=== PATIENT | male | born 1940 | race Two or more races ===

== ENCOUNTER 2025-02-18 14:09 | Inpatient (IN) | payer MEDICARE, OTHER ==
[~2025-02-18] VITALS: Ht 172.7 cm; Wt 65.1 kg
[2025-02-19 09:23] VITALS: BP 150/85; TEMP 97.7
[2025-02-19 11:10] VITALS: BP 150/85; TEMP 97.7
[2025-02-19 16:57] VITALS: BP 110/76; TEMP 97.6; O2SAT 95
[2025-02-19] MEDS ORDERED: ZINC113P3 TP (17:12)
[2025-02-19] MEDS ORDERED: HYDR20VI6 IV (17:12)
[2025-02-19] MEDS ORDERED: [UNRECOGNIZED DRUG - CODE] IV (17:12)
[2025-02-19] MEDS ORDERED: NA P133E RC (17:12)
[2025-02-19] MEDS ORDERED: TAMS-3 NG (17:12)
[2025-02-19] MEDS ORDERED: LINA5TAB NG (17:12)
[2025-02-19] MEDS ORDERED: NUT.237L36 PO (17:12)
[2025-02-19] MEDS ORDERED: ONDA4VIA52 IV (17:12)
[2025-02-19] MEDS ORDERED: FINA5TAB11 NG (17:12)
[2025-02-19] MEDS ORDERED: MAGN400O6 PO (17:12)
[2025-02-19] MEDS ORDERED: INSU100V28 SQ (17:12)
[2025-02-19] MEDS ORDERED: ONDANSETRON HCL 4 MG TABLET PO PRN (20:30)
[2025-02-19] MEDS ORDERED: DEXTROSE 50% 50 ML DISP.SYRIN IV PRN (20:45)
[2025-02-19] MEDS ORDERED: BLOOD SUGAR DIAGNOSTIC 1 EACH STRIP VI SCH (21:00)
[2025-02-19] MEDS: CARBIDOPA/LEVODOPA 25-100MG TABLET PO SCH (21:14)
[2025-02-19] MEDS: TAMSULOSIN HCL 0.4 MG CAP.SR.24H PO SCH (21:14)
[2025-02-19] MEDS: ATORVASTATIN 20 MG TABLET PO SCH (21:15)
[2025-02-19] MEDS: BLOOD SUGAR DIAGNOSTIC 1 EACH STRIP VI SCH (21:17)
[2025-02-19] MEDS: INSULIN REGULAR, HUMAN 1000 UNIT/10 ML VIAL SQ PRN (21:31)
[2025-02-19 21:52] VITALS: BP 132/79; TEMP 98; O2SAT 100
[2025-02-20] MEDS: LORAZEPAM 0.5 MG TABLET PO PRN (02:24)
[2025-02-20 06:22] VITALS: BP 132/79; TEMP 98; O2SAT 100
[2025-02-20 07:03] LABS: PLATELET COUNT (AUTO) 165 K/uL (152-348); RED BLOOD CELL COUNT(AUTO) 4.26 MIL/uL (4.06-5.63); RED CELL DISTRIBUTION WIDTH 13.0 % (12.1-16.2); WHITE BLOOD COUNT (AUTO) 5.0 K/uL (3.6-10.2)
[2025-02-20 07:20] LABS: CREATININE 1.1 mg/dL (0.6-1.3); SODIUM SERUM 138 mmol/L (136-145); UREA NITROGEN, BLOOD 16 mg/dL (7-18)
[2025-02-20 07:45] VITALS: BP 130/69; TEMP 97.9; O2SAT 99
[2025-02-20] MEDS: LINAGLIPTIN 5 MG TABLET PO SCH (08:38)
[2025-02-20] MEDS: FINASTERIDE 5 MG TABLET PO SCH (08:38)
[2025-02-20] MEDS: GLUCERNA SHAKE 237 ML CAN PO SCH (08:42)
[2025-02-20] MEDS ORDERED: LINAGLIPTIN 5 MG TABLET PO SCH (09:00)
[2025-02-20] MEDS ORDERED: IV D5W-0.45% NS 1000 ML BAG IV PRN (14:00)
[2025-02-20] MEDS ORDERED: DEXTROSE 50% 50 ML DISP.SYRIN IV PRN (14:00)
[2025-02-20] MEDS ORDERED: MAGNESIUM HYDROXIDE 30 ML LIQUID UDC PO PRN (14:00)
[2025-02-20 15:00] VITALS: BP 121/63; TEMP 97.8; O2SAT 99
[2025-02-20 16:10] VITALS: O2SAT 99
[2025-02-20] MEDS ORDERED: BLOOD SUGAR DIAGNOSTIC 1 EACH STRIP VI SCH (16:30)
[2025-02-20] MEDS: INSULIN REGULAR, HUMAN 300 UNITS/3 ML VIAL SQ PRN (16:57)
[2025-02-20] MEDS ORDERED: GLUCERNA 1.2 1000ML LIQUID PO SCH (18:00)
[2025-02-20] MEDS ORDERED: TAMSULOSIN HCL 0.4 MG CAP.SR.24H PO SCH (21:00)
[2025-02-20 21:58] VITALS: BP 104/55; TEMP 98.1; O2SAT 99
[2025-02-21 05:41] VITALS: O2SAT 99
[2025-02-21 06:12] VITALS: BP 122/61; TEMP 98; O2SAT 100
[2025-02-21 08:14] VITALS: BP 140/69; TEMP 97.2; O2SAT 95
[2025-02-21] MEDS ORDERED: LINAGLIPTIN 5 MG TABLET NG SCH (09:00)
[2025-02-21] MEDS ORDERED: FINASTERIDE 5 MG TABLET NG SCH (09:00)
[2025-02-21 16:00] VITALS: BP 116/55; TEMP 83; O2SAT 98
[2025-02-21] MEDS: INSULIN REGULAR, HUMAN 1000 UNIT/10 ML VIAL SQ PRN (16:44)
[2025-02-21 21:17] VITALS: BP 131/67; TEMP 98.9; O2SAT 97
[2025-02-22] VITALS (7 sets, daily range): BP systolic 116–148; BP diastolic 60–69; TEMP 98.4–98.6; O2SAT 97–100
[2025-02-22] MEDS ORDERED: IV D5W-0.45% NS 1000 ML BAG IV PRN (07:15)
[2025-02-22 11:13] LABS: CREATININE 1.3 mg/dL (0.6-1.3); SODIUM SERUM 138 mmol/L (136-145); UREA NITROGEN, BLOOD 27 mg/dL (7-18)
[2025-02-22] MEDS: IV 1/2NS 1000 ML 1,000 ML IV ONE (18:17)
[2025-02-23 03:59] VITALS: O2SAT 99
[2025-02-23 05:17] VITALS: BP 142/68; TEMP 98.5; O2SAT 97
[2025-02-23 07:41] LABS: CREATININE 1.4 mg/dL (0.6-1.3); SODIUM SERUM 138 mmol/L (136-145); UREA NITROGEN, BLOOD 30 mg/dL (7-18)
[2025-02-23 07:42] VITALS: BP 115/62; TEMP 97.7; O2SAT 98
[2025-02-23] MEDS: IV 1/2NS 1000 ML 1,000 ML IV PRN (14:51)
[2025-02-23 15:32] VITALS: BP 108/52; TEMP 98.4; O2SAT 98
[2025-02-23 22:53] VITALS: BP 104/54; TEMP 98.5; O2SAT 93
[2025-02-24 06:20] VITALS: BP 110/57; TEMP 98.4; O2SAT 99
[2025-02-24 07:28] LABS: PLATELET COUNT (AUTO) 150 K/uL (152-348); RED BLOOD CELL COUNT(AUTO) 4.07 MIL/uL (4.06-5.63); RED CELL DISTRIBUTION WIDTH 13.2 % (12.1-16.2); WHITE BLOOD COUNT (AUTO) 5.6 K/uL (3.6-10.2)
[2025-02-24 07:49] LABS: ASPARTATE AMINOTRANSFERASE 15 U/L (15-37); CREATINE KINASE, TOTAL 19 U/L (39-308); CREATININE 1.6 mg/dL (0.6-1.3); SODIUM SERUM 140 mmol/L (136-145); TOTAL PROTEIN, SERUM 5.9 g/dL (6.4-8.2); UREA NITROGEN, BLOOD 30 mg/dL (7-18)
[2025-02-24 07:56] VITALS: BP 116/61; TEMP 98.4; O2SAT 100
[2025-02-24 11:22] LABS: *BILIRUBIN,URIN NEGATIVE (NEGATIVE); *BLOOD, URINE 2+ (NEGATIVE); *CLARITY,URINE CLEAR (CLEAR); *COLOR,URINE YELLOW (YELLOW); *KETONES,URINE NEGATIVE (NEGATIVE); *PROTEIN,URINE 1+ (NEGATIVE); *UROBILINOGEN,URINE 0.2 E.U./dl (NORMAL); LEUKOCYTE ESTERASE ,URINE NEGATIVE (NEGATIVE); NITRITE, URINE NEGATIVE (NEGATIVE); UGLUCOSE NEGATIVE (NEGATIVE)
[2025-02-24 11:35] LABS: *CREATININE,URINE 45.0 mg/dL (30-125); *SODIUM RNDM,URINE 104.0 mmol/L (40-220); *URINE TOTAL PROTEIN RANDOM 43.9 mg/dL (<150/24HR)
[2025-02-24 12:00] LABS: CALCIUM OXALATE CRYSTALS,UR FEW /HPF (NONE SEEN)
[2025-02-24 16:08] VITALS: BP 134/62; TEMP 97.3; O2SAT 98
[2025-02-24 16:25] VITALS: O2SAT 98
[2025-02-24 21:22] VITALS: BP 120/61; TEMP 98.6; O2SAT 99
[2025-02-24] MEDS: MAGNESIUM HYDROXIDE 30 ML LIQUID UDC PO PRN (23:55)
[2025-02-25 04:01] VITALS: O2SAT 99
[2025-02-25 05:35] VITALS: BP 125/71; TEMP 98.1; O2SAT 98
[2025-02-25 07:07] LABS: PTH, INTACT 14 pg/mL (15-65)
[2025-02-25 07:23] LABS: PLATELET COUNT (AUTO) 146 K/uL (152-348); RED BLOOD CELL COUNT(AUTO) 4.25 MIL/uL (4.06-5.63); RED CELL DISTRIBUTION WIDTH 13.3 % (12.1-16.2); WHITE BLOOD COUNT (AUTO) 4.6 K/uL (3.6-10.2)
[2025-02-25 07:40] LABS: ASPARTATE AMINOTRANSFERASE < 5 U/L (15-37); CREATINE KINASE, TOTAL 24 U/L (39-308); CREATININE 1.3 mg/dL (0.6-1.3); SODIUM SERUM 140 mmol/L (136-145); TOTAL PROTEIN, SERUM 6.2 g/dL (6.4-8.2); UREA NITROGEN, BLOOD 27 mg/dL (7-18)
[2025-02-25 08:00] VITALS: BP 11/55; TEMP 97.2; O2SAT 98
[2025-02-25] MEDS: FLEET ENEMA 133 ML BOTTLE RC PRN (15:02)
[2025-02-25 16:04] VITALS: O2SAT 98
[2025-02-25 20:00] VITALS: BP 118/65; TEMP 97.5; O2SAT 97
[2025-02-25] MEDS: ZOLPIDEM 5 MG TABLET PO ONE (23:15)
[2025-02-26] VITALS (7 sets, daily range): BP systolic 110–140; BP diastolic 51–70; TEMP 97.5–98.5; O2SAT 97–99
[2025-02-27] MEDS: MELATONIN 3 MG TABLET PO SCH (00:48)
[2025-02-27 06:00] VITALS: BP 137/65; TEMP 97.6; O2SAT 98
[2025-02-27 07:47] VITALS: BP 110/54; TEMP 98; O2SAT 98
[2025-02-27 14:57] VITALS: O2SAT 98
[2025-02-27 16:10] VITALS: BP 104/62; TEMP 97.5; O2SAT 99
[2025-02-27 20:37] VITALS: BP 134/63; TEMP 98.2; O2SAT 97
[2025-02-27] MEDS: ZOLPIDEM 5 MG TABLET PO PRN (23:04)
[2025-02-28 06:00] VITALS: BP 138/62; TEMP 97.7; O2SAT 98
[2025-02-28 07:28] LABS: CREATININE 1.1 mg/dL (0.6-1.3); SODIUM SERUM 139 mmol/L (136-145); UREA NITROGEN, BLOOD 25 mg/dL (7-18)
[2025-02-28 08:21] VITALS: BP 122/63; TEMP 98; O2SAT 98
[2025-02-28] MEDS: IV NS 1000 ML 1,000 ML IV PRN (12:42)
[2025-02-28 16:04] VITALS: BP 137/65; TEMP 98.1; O2SAT 97
[2025-02-28 19:41] VITALS: BP 129/66; TEMP 98.1; O2SAT 98
[2025-02-28 20:41] VITALS: O2SAT 98
[2025-03-01 06:28] VITALS: BP 139/64; TEMP 97.3; O2SAT 99
[2025-03-01 07:45] VITALS: BP 133/65; TEMP 97.6; O2SAT 98
[2025-03-01 12:30] VITALS: O2SAT 98
[2025-03-01 17:42] VITALS: BP 136/60; TEMP 98.4; O2SAT 99
[2025-03-01 19:59] VITALS: BP 116/56; TEMP 97.5; O2SAT 97
[2025-03-02 05:47] VITALS: O2SAT 98
[2025-03-02 06:45] VITALS: BP 128/65; TEMP 97.4; O2SAT 99
[2025-03-02 07:45] VITALS: BP 117/63; TEMP 98; O2SAT 98
[2025-03-02 08:06] VITALS: BP 115/52; TEMP 97.6
[2025-03-02 10:20] LABS: PLATELET COUNT (AUTO) 122 K/uL (152-348); RED BLOOD CELL COUNT(AUTO) 4.05 MIL/uL (4.06-5.63); RED CELL DISTRIBUTION WIDTH 13.3 % (12.1-16.2); WHITE BLOOD COUNT (AUTO) 5.5 K/uL (3.6-10.2)
[2025-03-02 10:39] LABS: ASPARTATE AMINOTRANSFERASE 20 U/L (15-37); CREATININE 1.2 mg/dL (0.6-1.3); SODIUM SERUM 142 mmol/L (136-145); TOTAL PROTEIN, SERUM 6.5 g/dL (6.4-8.2); UREA NITROGEN, BLOOD 27 mg/dL (7-18)
[2025-03-02 16:00] VITALS: O2SAT 98
[2025-03-02 21:22] VITALS: BP 122/54; TEMP 97.7; O2SAT 100
[2025-03-02] MEDS: ATORVASTATIN 20 MG TABLET PO SCH (21:27)
[2025-03-03 02:51] VITALS: O2SAT 98
[2025-03-03 06:00] VITALS: BP 144/58; TEMP 98; O2SAT 97
[2025-03-03 07:48] VITALS: BP 118/60; TEMP 97.8; O2SAT 97
[2025-03-03 09:07] LABS: A/G RATIO 1.1 (0.7-1.7); BETA GLOBULIN 0.7 g/dL (0.7-1.3); GLOBULIN, TOTAL 2.7 g/dL (2.2-3.9); M-SPIKE Not Observed g/dL (Not Observed); PROTEIN, TOTAL 5.7 g/dL (6.0-8.5)
[2025-03-03 15:52] VITALS: BP 146/86; TEMP 97.8; O2SAT 98
[2025-03-03 16:10] VITALS: O2SAT 97
[2025-03-03 20:00] VITALS: BP 122/65; TEMP 98.3; O2SAT 99
[2025-03-04] VITALS (7 sets, daily range): BP systolic 112–127; BP diastolic 66–72; TEMP 97.8–98; O2SAT 98–100
[2025-03-04] MEDS: IV D5 1/2 NS 1000 ML 1,000 ML IV PRN (18:21)
[2025-03-05] MEDS: TRAZODONE 50 MG TABLET PO PRN (00:50)
[2025-03-05 06:52] VITALS: BP 122/60; TEMP 97.3; O2SAT 96
[2025-03-05 07:42] VITALS: BP 132/68; TEMP 97.2; O2SAT 100
[2025-03-05 08:03] LABS: PLATELET COUNT (AUTO) 108 K/uL (152-348); RED BLOOD CELL COUNT(AUTO) 4.05 MIL/uL (4.06-5.63); RED CELL DISTRIBUTION WIDTH 13.7 % (12.1-16.2); WHITE BLOOD COUNT (AUTO) 5.9 K/uL (3.6-10.2)
[2025-03-05 08:45] LABS: ASPARTATE AMINOTRANSFERASE 11 U/L (15-37); CREATININE 1.6 mg/dL (0.6-1.3); SODIUM SERUM 138 mmol/L (136-145); TOTAL PROTEIN, SERUM 6.0 g/dL (6.4-8.2); UREA NITROGEN, BLOOD 35 mg/dL (7-18)
[2025-03-05 11:08] LABS: *BILIRUBIN,URIN NEGATIVE (NEGATIVE); *CLARITY,URINE CLEAR (CLEAR); *COLOR,URINE YELLOW (YELLOW); *KETONES,URINE NEGATIVE (NEGATIVE); *PROTEIN,URINE 2+ (NEGATIVE); *UROBILINOGEN,URINE 0.2 E.U./dl (NORMAL); LEUKOCYTE ESTERASE ,URINE NEGATIVE (NEGATIVE); NITRITE, URINE NEGATIVE (NEGATIVE); UGLUCOSE NEGATIVE (NEGATIVE)
[2025-03-05 11:13] LABS: *BLOOD, URINE TRACE (NEGATIVE)
[2025-03-05 12:14] LABS: SQUAMOUS EPITHELIAL CELL,UR FEW /HPF (NONE SEEN)
[2025-03-05 16:00] VITALS: BP 119/65; TEMP 97; O2SAT 97
[2025-03-05 20:00] VITALS: BP 131/74; TEMP 98.3; O2SAT 100
[2025-03-06 01:49] VITALS: O2SAT 98
[2025-03-06 05:00] VITALS: BP 117/55; TEMP 97.3; O2SAT 100
[2025-03-06 08:00] VITALS: BP 137/70; TEMP 97.6; O2SAT 99
[2025-03-06 16:15] VITALS: O2SAT 98
[2025-03-06 16:34] VITALS: BP 122/62; TEMP 97.6; O2SAT 100
[2025-03-06 22:25] VITALS: BP 148/63; TEMP 97.7; O2SAT 99
[2025-03-07 07:10] VITALS: BP 132/69; TEMP 97.9; O2SAT 99
[2025-03-07 07:37] VITALS: BP 122/68; TEMP 97.7; O2SAT 97
[2025-03-07 11:22] VITALS: O2SAT 97
== END 2025-03-07 14:40 | disposition home health service (06) | DRG 291 ==
PROVIDERS: ADMIT Physical Medicine & Rehabilitation Pain Medicine; ATTEND Physical Medicine & Rehabilitation Pain Medicine
DX: I13.0 Hypertensive heart and chronic kidney disease with heart failure and stage 1 through stage 4 chronic kidney disease, or unspecified chronic kidney disease (principal); G93.41 Metabolic encephalopathy; I50.33 Acute on chronic diastolic (congestive) heart failure; J96.01 Acute respiratory failure with hypoxia; N17.0 Acute kidney failure with tubular necrosis; I46.2 Cardiac arrest due to underlying cardiac condition; I44.2 Atrioventricular block, complete; E87.20 Acidosis, unspecified; N18.9 Chronic kidney disease, unspecified; G20.A1 Parkinson's disease without dyskinesia, without mention of fluctuations; F02.80 Dementia in other diseases classified elsewhere, unspecified severity, without behavioral disturbance, psychotic disturbance, mood disturbance, and anxiety; E78.5 Hyperlipidemia, unspecified; E11.22 Type 2 diabetes mellitus with diabetic chronic kidney disease; I25.10 Atherosclerotic heart disease of native coronary artery without angina pectoris; R53.1 Weakness; Z95.5 Presence of coronary angioplasty implant and graft; D64.9 Anemia, unspecified; E86.0 Dehydration; I35.0 Nonrheumatic aortic (valve) stenosis; I95.1 Orthostatic hypotension; L98.9 Disorder of the skin and subcutaneous tissue, unspecified; D69.6 Thrombocytopenia, unspecified
CPT/HCPCS: 36415; 70450; 71045; 76770; 83735; 83970; 84100; 84153; 84155; 84165; 84300; 84443; 85025; 87086; 93005; 97535-GO-CO; A4663; A6213; J1815; J7040; J7042; J7060